=== PATIENT | female | born 1970 ===

== ENCOUNTER 2017-02-08 09:13 | Day surgery (SDC) | payer OTHER ==
[2017-02-08 10:02] VITALS: BMI 27.1
[2017-02-08 10:39] LABS: BASO % 0.5 % (0.0-2.0); EOS # 0.1 K/uL (0.0-0.7); EOS % 2.2 % (0.0-4.0); HEMATOCRIT 40.3 % (34.0-47.0); LYMPH # 1.1 K/uL (1.0-4.3); LYMPH % 25.8 % (20.0-40.0); MEAN CELL VOLUME 91.5 fl (81.0-99.0); MEAN CORPUSCULAR HEMOGLOBIN 30.3 pg (27.0-31.0); MEAN CORPUSCULAR HGB CONC 33.2 g/dL (33.0-37.0); MEAN PLATELET VOLUME 9.5 fl (7.2-11.7); MONO # 0.3 K/uL (0.0-0.8); MONO % 7.7 % (0.0-10.0); NEUT # 2.8 K/uL (1.8-7.0); NEUT % 63.8 % (50.0-75.0); NRBC % 0.2 % (0.0-0.0); WHITE BLOOD COUNT 4.4 K/uL (4.8-10.8)
[2017-02-08 10:50] LABS: BLOOD UREA NITROGEN 8 mg/dl (7-17); CALCIUM 9.4 mg/dL (8.4-10.2); CARBON DIOXIDE 22 mmol/L (22-30); CHLORIDE 110 mmol/L (98-107); GFR AFRICAN-AMERICAN > 60; GLUCOSE,RANDOM 92 mg/dL (65-105); POTASSIUM 4.1 MMOL/L (3.6-5.0); SODIUM 143 mmol/l (132-148)
--- NOTE | 2017-02-10 11:56 | CARD ---
APPROVED REPORT EKG Measurement Heart [id number] MD [id number] <Conclusion> Normal sinus rhythm Normal ECG
== END 2017-02-08 11:30 | disposition home or self-care (01) ==
LOC: H.PAT 09:13
PROVIDERS: ATTEND Obstetrics & Gynecology
DX: Z01.818 Encounter for other preprocedural examination (principal); N92.6 Irregular menstruation, unspecified; N93.9 Abnormal uterine and vaginal bleeding, unspecified

== ENCOUNTER 2017-02-12 06:18 | Day surgery (SDC) | payer OTHER ==
[2017-02-08 11:21] VITALS: BMI 26.3
[2017-02-12] MEDS ORDERED: ePHEDrine 50 mg/ml Inj ONE (07:20)
[2017-02-12] MEDS ORDERED: Propofol 10 mg/ml Inj (20 ML) ONE (07:20)
[2017-02-12] MEDS ORDERED: Midazolam 2 MG/2 ML VIAL ONE ×2 (07:20→08:46)
[2017-02-12] MEDS ORDERED: Lidocaine 4% (Laryng-O-Jet) Kit MM ONE (07:21)
[2017-02-12] MEDS ORDERED: Succinylcholine 200 mg/10 ml Inj IV ONE (07:21)
[2017-02-12] MEDS ORDERED: Lactated Ringer's 1,000 ML IV ONE (08:40)
[2017-02-12] MEDS ORDERED: Dexamethasone 4 mg/1 ml ONE (09:00)
[2017-02-12] MEDS ORDERED: ceFAZolin IV 1 gm in Dextrose 2 GM/100 ML BAG IVPB ONE (09:08)
[2017-02-12] MEDS ORDERED: Ferric Subsulfate Sol(60 mL) ONE (09:19)
--- NOTE | 2017-02-12 09:39 | PCM.SURG1 ---
Surgeon's Initial Post Op Note - Surgeon's Notes Surgeon: Lina Talley DO Vice Admiral: none Type of Anesthesia: General LMA Pre-Operative Diagnosis: Postmenopausal bleeding/endometrial thickening Operative Findings: Stenotic cervix; endomterial polyp Post-Operative Diagnosis: Same Operation Performed: D&C/hysteroscopy Specimen/Specimens Removed: Endometrial polyp,ECC, EMC Estimated Blood Loss: EBL {In ML}: 0 Blood Products Given: N/A Drains Used: No Drains Post-Op Condition: Good Date of Surgery/Procedure: 02/12/17 Time of Surgery/Procedure: 08:30
[2017-02-12] MEDS ORDERED: Lactated Ringer's 1,000 ML IV SCH ×2 (09:45)
[2017-02-12 11:33] VITALS: BP 107/68; PULSE 84; RESP 17; TEMP 97.2; O2SAT 100
--- NOTE | 2017-02-17 08:30 | OP ---
PROCEDURE DATE: 02/12/2017 PREOPERATIVE DIAGNOSES: Postmenopausal bleeding, endometrial thickening. POSTOPERATIVE DIAGNOSES: Postmenopausal bleeding, endometrial thickening. PROCEDURE: Dilatation and curettage, hysteroscopy. SURGEON: Barrington Talley DO. COAT CUTTER: None. TYPE OF ANESTHESIA: General LMA. FINDINGS: Stenotic cervix. Endometrial polyp. POSTOP CONDITION: Good. SPECIMEN: Specimens include endometrial polyp, endometrial curetting and the subcu curetting. DESCRIPTION OF PROCEDURE: Korin was brought to the operating room, placed in a supine position. After successful induction of general anesthesia by Dr. Rodríguez, she was placed in lithotomy position. Compression boots were placed on both lower extremities. She was then draped and prepped in the usual sterile manner. Catheter was used to drain the bladder of its contents. Exam under anesthesia was performed. Uterus was not enlarged. No adnexal masses noted. Cervix was closed. Thereafter, a weighted speculum was placed in the posterior fornix of the vagina and the right-angle retractor in the anterior fornix of the vagina to visualize the cervix. The cervix was noted to be very anterior, almost under the symphysis pubis. Thereafter, once cervix was identified, it was grasped at 12 o'clock position using a single-tooth tenaculum. Cervix was noted to be very stenotic. Attempt was made to dilate cervix using the dilators. Thereafter, decision was made to use lacrimal dilators to dilate the cervix. This was successful and the cervix was eventually dilated to the point where a 5-mm hysteroscope was then introduced. Upon entering the cervical canal, we were able to also identify what appeared to be the endometrial cavity and a small polyp noted at the posterior wall using forceps. Through the hysteroscope, this was removed and sent to pathology lab. No other mass lesions were noted. It appeared that the cervical canal was clean. Questionable endometrial cavity was then also noted to be clear as well without any masses or lesions. All equipments were removed and accounted for. Thereafter, using Kevorkian curette, curetting of the endocervical canal was performed and thereafter a small curette was introduced. This was done to obtain endometrial curetting. Prior to procedure also, uterus was sounded approximately 6 to 7 cm as well. All equipments removed and accounted for. The cervix at the 12 o'clock position noted to have some bleeding. Decision was made to apply initially silver nitrate and also Alonzo's solution was applied. Hemostasis was assured. All equipments were removed and accounted for. She tolerated the procedure well and was reversed from general anesthesia and brought to the recovery room in stable condition. Barrington Talley DO
== END 2017-02-12 11:54 | disposition home or self-care (01) ==
LOC: H.OPSURG 06:18
PROVIDERS: ATTEND Obstetrics & Gynecology
DX: N95.0 Postmenopausal bleeding (principal); N87.1 Moderate cervical dysplasia; N84.0 Polyp of corpus uteri
CPT/HCPCS: 58558; 88305; J0330; J0690; J1100; J1885; J2250; J2405; J2704; J3010; J7030; J7120